=== PATIENT | female | born 1980 | race Two or more races ===

== ENCOUNTER 2019-02-28 15:03 | Emergency (ER) | payer OTHER ==
[~2019-02-28] VITALS: Ht 152.4 cm; Wt 54.0 kg
[2019-02-28] MEDS ORDERED: MECLIZINE HCL25 MG PO (18:27)
== END 2019-02-28 18:41 | disposition home or self-care (01) ==
LOC: ER 15:03
DX: R42 Dizziness and giddiness (principal)

== ENCOUNTER 2020-07-29 16:29 | Emergency (ER) | payer OTHER ==
[~2020-07-29] VITALS: Ht 154.9 cm; Wt 53.5 kg
[~2020-07-29 16:29] MED LIST: MECLIZINE HCL25 MG PO
[2020-07-29] MEDS ORDERED: PEPCID AC20 MG PO (20:16)
[2020-07-29] MEDS ORDERED: NAPROXEN375 MG PO (20:16)
== END 2020-07-29 20:20 | disposition home or self-care (01) ==
LOC: ER 16:29
DX: D25.9 Leiomyoma of uterus, unspecified (principal); N93.8 Other specified abnormal uterine and vaginal bleeding; R10.2 Pelvic and perineal pain

== ENCOUNTER 2021-07-12 09:54 | Outpatient (CLI) | payer OTHER ==
[~2021-07-12 09:54] MED LIST changes: +NAPROXEN375 MG PO; +PEPCID AC20 MG PO
== END 2021-07-12 10:05 | disposition home or self-care (01) ==
LOC: SONOGRAMA 09:54
PROVIDERS: ATTEND Pathology Anatomic Pathology & Clinical Pathology
DX: E04.9 Nontoxic goiter, unspecified (principal)

== ENCOUNTER 2022-01-27 07:09 | Outpatient (CLI) | payer OTHER | END 2022-01-27 07:10 | disposition home or self-care (01) | LOC: NUCLEAR 07:09 | PROVIDERS: ATTEND Internal Medicine Endocrinology, Diabetes & Metabolism | DX: E05.90 Thyrotoxicosis, unspecified without thyrotoxic crisis or storm (principal) | CPT/HCPCS: 78012; A9528 ==

== ENCOUNTER 2022-08-16 08:28 | Outpatient (CLI) | payer OTHER | END 2022-08-16 08:41 | disposition home or self-care (01) | LOC: SONOGRAMA 08:28 | PROVIDERS: ATTEND Internal Medicine Endocrinology, Diabetes & Metabolism | DX: I15.0 Renovascular hypertension (principal); I10 Essential (primary) hypertension; E04.1 Nontoxic single thyroid nodule; E05.90 Thyrotoxicosis, unspecified without thyrotoxic crisis or storm ==

== ENCOUNTER 2022-08-18 07:30 | Outpatient (CLI) | payer OTHER | END 2022-08-18 07:40 | disposition home or self-care (01) | LOC: NUCLEAR 07:30 | PROVIDERS: ATTEND Internal Medicine Endocrinology, Diabetes & Metabolism | DX: E05.90 Thyrotoxicosis, unspecified without thyrotoxic crisis or storm (principal) ==

== ENCOUNTER 2023-07-06 08:36 | Outpatient (CLI) | payer OTHER | END 2023-07-06 08:37 | disposition home or self-care (01) | LOC: NUCLEAR 08:36 | PROVIDERS: ATTEND Internal Medicine Sports Medicine | DX: C73 Malignant neoplasm of thyroid gland (principal); E89.0 Postprocedural hypothyroidism ==

== ENCOUNTER 2023-07-10 11:04 | Outpatient (CLI) | payer OTHER | END 2023-07-10 11:06 | disposition home or self-care (01) | LOC: NUCLEAR 11:04 | PROVIDERS: ATTEND Internal Medicine Sports Medicine | DX: C73 Malignant neoplasm of thyroid gland (principal); E89.0 Postprocedural hypothyroidism ==

== ENCOUNTER 2024-07-26 08:17 | Outpatient (CLI) | payer OTHER | END 2024-07-26 08:20 | disposition home or self-care (01) | LOC: SONOGRAMA 08:17 | PROVIDERS: ATTEND Specialist | DX: G57.53 Tarsal tunnel syndrome, bilateral lower limbs (principal); M77.41 Metatarsalgia, right foot ==